=== PATIENT | female | born 1965 | race Caucasian/White ===

== ENCOUNTER 2022-10-28 15:27 | Emergency (ER) | payer OTHER, SELFPAY ==
[2022-10-28] MEDS ORDERED: Bupivacaine PF 0.5% 30 ML VIAL ONE (16:50)
[2022-10-28] MEDS ORDERED: Clindamycin 150 MG CAP ONE (19:09)
[2022-10-28] MEDS ORDERED: HYDROcodone/Acetaminophen 5/325 mg Tablet ONE (19:10)
== END 2022-10-28 19:20 | disposition home or self-care (01) ==
LOC: CSHERS 15:27
DX: K04.7 Periapical abscess without sinus (principal); I25.10 Atherosclerotic heart disease of native coronary artery without angina pectoris; E11.9 Type 2 diabetes mellitus without complications
CPT/HCPCS: 64400; S0020

== ENCOUNTER 2022-11-27 21:54 | Emergency (ER) | payer OTHER ==
[2022-11-27 23:08] LABS: Bilirubin Neg (Negative); Blood, Urine 250 (Negative); Clarity Bloody (Clear); Glucose, Urine (Dipstick) Normal (Negative); Ketone, Urine Negative (Negative); Leukocyte 100 (Negative); Nitrite Negative (Negative); Protein, Urine (Dipstick) 500 mg/dl (Neg-Trace); Specific Gravity, Urine 1.015 (1.005-1.030); Urobilinogen Normal mg/dL (Less than 2)
[2022-11-27 23:22] LABS: Bacteria/HPF 2+ HPF (None Seen); RBC/HPF Greater than 50 HPF (0-3); Squamous Epithelial None Seen HPF (0-3); WBC/HPF 21-50 HPF (0-3)
[2022-11-28] MEDS ORDERED: Nitrofurantoin Monohyd/M-Cryst 100 MG CAP PO SCH (00:15)
== END 2022-11-28 00:01 | disposition home or self-care (01) ==
LOC: CSHERS 21:54
DX: N39.0 Urinary tract infection, site not specified (principal); I10 Essential (primary) hypertension; E11.9 Type 2 diabetes mellitus without complications; I25.10 Atherosclerotic heart disease of native coronary artery without angina pectoris; F17.290 Nicotine dependence, other tobacco product, uncomplicated; Z79.4 Long term (current) use of insulin; Z79.02 Long term (current) use of antithrombotics/antiplatelets; Z79.84 Long term (current) use of oral hypoglycemic drugs
CPT/HCPCS: 81003; 81015; 99283

== ENCOUNTER 2024-03-08 09:56 | Emergency (ER) | payer MEDICARE, OTHER ==
[2024-03-08] MEDS ORDERED: cefTRIAXone (ROCEPHIN) 1 GM VIAL ONE (11:04)
== END 2024-03-08 11:14 | disposition home or self-care (01) ==
LOC: CSHERS 09:56
DX: L03.116 Cellulitis of left lower limb (principal); I10 Essential (primary) hypertension; F17.290 Nicotine dependence, other tobacco product, uncomplicated; E11.40 Type 2 diabetes mellitus with diabetic neuropathy, unspecified
CPT/HCPCS: 96372; 99283; J0696

== ENCOUNTER 2024-05-15 09:02 | Outpatient (CLI) | payer MEDICARE | END 2024-05-15 09:03 | disposition home or self-care (01) | LOC: CSHCT 09:02 | PROVIDERS: ATTEND Family Medicine | DX: Z12.2 Encounter for screening for malignant neoplasm of respiratory organs (principal); Z87.891 Personal history of nicotine dependence; R91.8 Other nonspecific abnormal finding of lung field | CPT/HCPCS: 71271 ==

== ENCOUNTER 2024-05-15 10:48 | Outpatient (CLI) | payer MEDICAID, MEDICARE, OTHER | END 2024-05-15 10:49 | disposition home or self-care (01) | LOC: CSHMAMMO 10:48 | PROVIDERS: ATTEND Family Medicine | DX: Z13.820 Encounter for screening for osteoporosis (principal); Z78.0 Asymptomatic menopausal state | CPT/HCPCS: 77080 ==